=== PATIENT | female | born 1965 | race African-American/Black ===

== ENCOUNTER → 2018-01-12 | Outpatient (CLI) | payer OTHER ==
[~2018-01-12] MED LIST: BYETTA10 MCG/0.0 INJ; LANTUS100 UNIT/1 INJ; LISINOPRIL-HCT1 EAC1 PO; METFORMIN; METFORMIN HCL500 MG PO; SIMVASTATIN; SIMVASTATIN40 MG PO
--- NOTE | 2018-01-19 09:55 | Diagnostic Imaging Report ---
#[id number] - MGSCRBIL #BILATERAL DIGITAL SCREENING MAMMOGRAM WITH CAD: 01/12/2018 CLINICAL: Routine screening. Comparison is made to exams dated: 11/30/2013 mammogram and 05/15/2012 mammogram - [facility]. Current study contains 4 films. The tissue of both breasts is heterogeneously dense. This may lower the sensitivity of mammography. Current study was also evaluated with a Computer Aided Detection (CAD) system. There are benign vascular calcifications and calcifications in both breasts. There also is a benign lymph node in the right breast. Additionally there are benign lymph nodes in the left breast. No significant masses, calcifications, or other findings are seen in either breast. There has been no significant interval change. IMPRESSION: BENIGN There is no mammographic evidence of malignancy. A 1 year screening mammogram is recommended. The patient will be notified by letter of the results. Jose M grier/derek:01/16/2018 11:35:32 Rn Rehabilitation: Judy INFANTE)(M), [facility] letter sent: Compared to Prior B9 Mammogram BI-RADS: 2 Benign
== END ==
LOC: MAMMO 14:17
PROVIDERS: ATTEND Family Medicine
DX: Z12.31 Encounter for screening mammogram for malignant neoplasm of breast (principal)
CPT/HCPCS: 77067